=== PATIENT | female | born 1995 ===

== ENCOUNTER 2019-06-25 20:14 | Emergency (ER) | payer SELFPAY ==
[2019-06-25 20:27] VITALS: BP 141/98
[2019-06-25] MEDS ORDERED: RINGERS SOLUTION,LACTATED 1,000 ML IV ONE (20:27)
--- NOTE | 2019-06-25 20:35 | ER Document Report ---
ED Medical Screen (RME) - General Stated Complaint: SUGAR ISSUES Time Seen by Provider: 06/25/19 20:25 Mode of Arrival: Ambulatory Information source: Patient Notes: HPI; 24-year-old female past medical history significant for insulin-dependent diabetes, depression, anxiety, drug abuse presents to the emergency room for medical clearance so that she can go to [facility] for her depression, anxiety, and drug abuse. Patient states she was sent over because her blood sugar over [facility] was greater than 500, blood sugar in triage 557. PE: Alert and oriented x3. Lungs clear to auscultation without rales rhonchi wheezes, heart: Tachycardic without murmurs rubs or gallops. Patient with multiple cuts on her arms and admits to suicidal ideation in the past but currently denies any suicidal ideation. I have greeted and performed a rapid initial assessment of this patient. A comprehensive ED assessment and evaluation of the patient, analysis of test results and completion of medical decision making process will be conducted by an additional ED providers. TRAVEL OUTSIDE OF THE [place] IN LAST 30 DAYS: No Physical Exam - Vital signs Vitals: Temp Pulse Resp BP Pulse Ox 98.9 F 124 H 16 141/98 H 100 06/25/19 20:25 06/25/19 20:25 06/25/19 20:25 06/25/19 20:25 06/25/19 20:25 Course - Vital Signs Vital signs: Temp Pulse Resp BP Pulse Ox 98.9 F 124 H 16 141/98 H 100 06/25/19 20:25 06/25/19 20:25 06/25/19 20:25 06/25/19 20:25 06/25/19 20:25
[2019-06-25 21:05] LABS: ABSOLUTE EOSINOPHILS # (AUTO) 0.1 10^3/uL (0.0-0.6); ABSOLUTE MONOCYTES (AUTO) 0.3 10^3/uL (0.1-1.4); ABSOLUTE NEUT (AUTO) 3.1 10^3/uL (1.7-8.2); BASOPHILS % (AUTO) 0.8 % (0-2); EOSINOPHILS % (AUTO) 2.6 % (0-6); HEMATOCRIT 39.7 % (36.0-47.0); HEMOGLOBIN 14.2 g/dL (12.0-15.5); LYMPHOCYTES % (AUTO) 36.5 % (13-45); MEAN CORPUSCULAR HEMOGLOBIN 31.7 pg (27.0-33.4); MEAN CORPUSCULAR HGB CONC 35.8 g/dL (32.0-36.0); MEAN CORPUSCULAR VOLUME 89 fl (80-97); PLATELET COUNT 356 10^3/uL (150-450); RED BLOOD COUNT 4.48 10^6/uL (3.72-5.28); SEGMENTED NEUTROPHILS % (AUTO) 55.1 % (42-78); TOTAL CELLS COUNTED % (AUTO) 100 %; WHITE BLOOD COUNT 5.6 10^3/uL (4.0-10.5)
[2019-06-25 21:07] LABS: APPEARANCE,URINE CLEAR; BILIRUBIN,URINE NEGATIVE (NEGATIVE); COLOR,URINE STRAW; GLUCOSE, URINE >=500 mg/dL (NEGATIVE); KETONES,URINE 20 mg/dL (NEGATIVE); LEUKOCYTE ESTERASE,URINE NEGATIVE (NEGATIVE); NITRITE,URINE NEGATIVE (NEGATIVE); PROTEIN,URINE NEGATIVE (NEGATIVE); URINE SPECIFIC GRAVITY 1.027; UROBILINOGEN,URINE NEGATIVE mg/dL (<2.0)
[2019-06-25 21:22] LABS: ALBUMIN 4.8 g/dL (3.5-5.0); ALKALINE PHOSPHATASE 82 U/L (38-126); ANION GAP 12 (5-19); ASPARTATE AMINO TRANSFERASE 14 U/L (14-36); BILIRUBIN,TOTAL 0.8 mg/dL (0.2-1.3); BLOOD UREA NITROGEN 21 mg/dL (7-20); CALCIUM 9.5 mg/dL (8.4-10.2); CARBON DIOXIDE 25 mmol/L (22-30); CHLORIDE 93 mmol/L (98-107); POTASSIUM 4.1 mmol/L (3.6-5.0); TOTAL PROTEIN 7.6 g/dL (6.3-8.2); URINE AMPHETAMINES SCREEN NEGATIVE; URINE BARBITURATES SCREEN NEGATIVE; URINE BENZODIAZEPINES SCREEN NEGATIVE; URINE COCAINE SCREEN NEGATIVE; URINE MARIJUANA (THC) SCREEN NEGATIVE; URINE METHADONE SCREEN NEGATIVE; URINE PHENCYCLIDINE SCREEN NEGATIVE
[2019-06-25 21:24] LABS: ACETAMINOPHEN < 10 ug/mL (10-30); ALCOHOL < 10 mg/dL (NONE DETECTED); SALICYLATE < 1.0 mg/dL (2.0-20.0)
--- NOTE | 2019-06-25 21:25 | ER Document Report ---
Doctor's Note Notes: 06/25/19 21:24 I signed up to evaluate this patient. I noted her elevated heart rate, as well as her elevated [id number] glucose. I went towards the room, and the bed was being cleaned. I was notified by nursing that the patient would not stay "because the TV would not work." I did not personally interview, evaluate, or examine the patient in any way. She left AGAINST MEDICAL ADVICE. I did not see her physically in the department at any time.
[2019-06-25 21:28] LABS: GLUCOSE 497 mg/dL (75-110)
== END 2019-06-25 21:34 | disposition left against medical advice (07) ==
LOC: ER 20:14
DX: E11.9 Type 2 diabetes mellitus without complications (principal); F41.9 Anxiety disorder, unspecified; F32.9 Major depressive disorder, single episode, unspecified; F19.10 Other psychoactive substance abuse, uncomplicated; Z53.29 Procedure and treatment not carried out because of patient's decision for other reasons
CPT/HCPCS: 36415; 80053; 80307; 81001; 81025; 82962; 85025; 99281